=== PATIENT | male | born 1970 | race Asian ===

== ENCOUNTER 2018-03-28 13:12 | Emergency (ER) | payer OTHER ==
[2018-03-28] MEDS: SOD CHLORIDE 0.9% 1,000 ML IV (14:46)
[2018-03-28 14:50] LABS: ADD MAN DIFF? NO
[2018-03-28 14:55] LABS: BASOPHILS % 0.5 % (0.0-2.0); EOSINOPHILS # 0.1 10^3/ul (0.0-0.5); EOSINOPHILS % 1.2 % (0.0-7.0); HEMATOCRIT 39.1 % (42.0-52.0); HEMOGLOBIN 13.3 g/dl (14.0-18.0); LYMPHOCYTES # 1.7 10^3/ul (0.8-2.9); LYMPHOCYTES % 27.7 % (15.0-51.0); MEAN CORPUSCULAR HEMOGLOBIN 31.1 pg (29.0-33.0); MEAN CORPUSCULAR VOLUME 91.6 fl (82.0-101.0); MEAN PLATELET VOLUME 10.2 fl (7.4-10.4); MONOCYTE # 0.4 10^3/ul (0.3-0.9); MONOCYTES % 6.3 % (0.0-11.0); NEUTROPHIL # 3.8 10^3/ul (1.6-7.5); NEUTROPHILS % 63.8 % (39.0-77.0); PLATELET COUNT 217 10^3/UL (140-415); RED BLOOD COUNT 4.27 10^6/ul (4.70-6.10); RED CELL DISTRIBUTION WIDTH 12.5 % (11.5-14.5)
[2018-03-28 15:14] LABS: ANION GAP 7 (5-13); CARBON DIOXIDE 25 mmol/L (21-31); CHLORIDE 109 mmol/L (97-110); INR 0.96; PROTIME 12.9 Sec (11.9-14.9); SODIUM 141 mmol/L (135-144)
[2018-03-28 15:15] LABS: PARTIAL THROMBOPLASTIN TIME 27.7 Sec (23.0-35.0)
[2018-03-28 15:24] LABS: ASPARTATE AMINO TRANSFERASE 28 IU/L (15-46); BLOOD UREA NITROGEN 18 mg/dl (7-20); CALCIUM 8.9 mg/dl (8.4-10.2); CREATININE 0.87 mg/dl (0.61-1.24); Estimated GFR > 60 mL/min (>60); GLUCOSE 103 mg/dl (70-220)
[2018-03-28 15:25] LABS: ALANINE AMINOTRANSFERASE 27 IU/L (13-69); ALBUMIN 3.8 g/dl (3.3-4.9); ALBUMIN/GLOBULIN RATIO 1.15; TOTAL PROTEIN 7.1 g/dl (6.1-8.1)
[2018-03-28 15:26] LABS: ALKALINE PHOSPHATASE 61 IU/L (42-121)
[2018-03-28 15:42] LABS: BILIRUBIN,INDIRECT 0.8 mg/dl (0-1.1)
[2018-03-28 15:43] LABS: BILIRUBIN,TOTAL 0.8 mg/dl (0.2-1.3)
[2018-03-28] MEDS: DIPHTH/TET/ACEL PERTUSS (ADULT) 0.5 ML VIAL IM* (16:02)
== END 2018-03-28 16:30 | disposition home or self-care (01) ==
LOC: FTE 13:12
DX: S61.205A Unspecified open wound of left ring finger without damage to nail, initial encounter (principal); I10 Essential (primary) hypertension; I25.2 Old myocardial infarction; F17.210 Nicotine dependence, cigarettes, uncomplicated; M79.645 Pain in left finger(s); W26.0XXA Contact with knife, initial encounter; Y92.9 Unspecified place or not applicable; Z23 Encounter for immunization; Z98.61 Coronary angioplasty status
CPT/HCPCS: 73130; 73130-LT; 80053; 85025; 85610; 85730; 86850; 86900; 86901; 90471; 90715; 96360; 99284-25